=== PATIENT | female | born 1940 | race Caucasian/White ===

== ENCOUNTER 2016-05-27 13:05 | Emergency (ER) | payer OTHER ==
[~2016-05-27] VITALS: Ht 172.7 cm; Wt 56.8 kg
[2016-05-27 13:42] LABS: HEMATOCRIT 38.6 % (36.0-46.0); MCH 33.7 PG (29.0-34.0); MCHC 34.5 G/DL (30.0-36.0); MCV 97.7 FL (83-99); MEAN PLAT.VOLUME 8.7 uM^3 (9.5-12.4); PLATELET COUNT 290 K/uL (156-360); RBC DIS.WIDTH-CV 13.1 % (11.8-14.6); RBC DIS.WIDTH-SD 46.3 % (39-53); RED BLOOD COUNT 3.95 M/uL (3.80-5.20); WHITE BLOOD COUNT 13.1 K/uL (4.1-10.2)
[2016-05-27 13:58] LABS: CHLORIDE 104 mEq/L (99-109); POTASSIUM 4.4 mEq/L (3.7-5.4); SODIUM 135 mEq/L (136-147)
[2016-05-27 14:01] LABS: GLUCOSE 102 mg/dL (70-99)
[2016-05-27 14:02] LABS: ANION GAP 14 MEQ/L (2-14); TOTAL BILIRUBIN 0.9 mg/dL (0.0-1.0)
[2016-05-27 14:04] LABS: ALKALINE PHOSPHATASE 122 IU/L (3-129)
[2016-05-27 14:05] LABS: UREA NITROGEN (BUN) 15 mg/dL (9-23)
[2016-05-27 14:13] LABS: GFR ESTIMATE (CALCULATED) 58 mL/min/
[2016-05-27 16:14] LABS: TROP-I INTERPRETATION NEGATIVE; TROPONIN-I < 0.01 ng/mL (0.0-0.30)
[2016-05-27 16:23] LABS: LIPASE 44 U/L (1.0-51.0)
[2016-05-27 17:03] LABS: ADD MIUA? YES; BILIRUBIN NEGATIVE; BLOOD SMALL; COLOR YELLOW ((YELLOW)); GLUCOSE (STRIP) NEGATIVE; KETONES 5; LEUKOCYTES LARGE; NITRITE NEGATIVE; PROTEIN (STRIP) NEGATIVE; SPECIFIC GRAVITY 1.023 (1.000-1.030); UROBILINOGEN 0.2 MG/DL (0.2-1.0)
[2016-05-27 17:09] LABS: BACTERIA NONE SEEN /HPF; EPITHELIAL CELLS 2+ /HPF; MUCUS TRACE /LPF; UCUL ADDED? NO; WHITE BLOOD CELLS 40-50 /HPF (0-5)
[2016-05-27] MEDS ORDERED: ZOFRAN ODT4 MG PO (19:12)
[2016-05-27] MEDS ORDERED: MACROBID100 MG PO (19:12)
[2016-05-27] MEDS ORDERED: ULTRAM50 MG PO (19:12)
[2016-05-27 19:59] VITALS: BP 147/91
== END 2016-05-27 20:02 | disposition home or self-care (01) ==
LOC: EME 13:05
DX: N39.0 Urinary tract infection, site not specified (principal); R10.12 Left upper quadrant pain; R10.13 Epigastric pain; Z86.11 Personal history of tuberculosis; Z90.2 Acquired absence of lung [part of]
CPT/HCPCS: 71020; 74177; 80053; 81003; 83690; 84484; 85027; 93005; 99281; 99284